=== PATIENT | female | born 1990 | race Caucasian/White ===

== ENCOUNTER 2017-03-20 15:23 | Emergency (ER) | payer OTHER ==
[2017-03-20 18:24] VITALS: BP 101/61
== END 2017-03-20 18:24 | disposition home or self-care (01) ==
LOC: ED 15:23
DX: N39.0 Urinary tract infection, site not specified (principal); K52.9 Noninfective gastroenteritis and colitis, unspecified
CPT/HCPCS: J1885

== ENCOUNTER 2019-07-25 16:22 | Emergency (ER) | payer OTHER ==
[~2019-07-25] VITALS: Ht 160 cm; Wt 94.3 kg
[2019-07-25 16:38] VITALS: Ht 160 cm; Wt 94.3 kg
[2019-07-25 19:44] VITALS: BP 128/86
== END 2019-07-25 19:44 | disposition home or self-care (01) ==
LOC: ED 16:22
DX: M65.4 Radial styloid tenosynovitis [de Quervain] (principal)